=== PATIENT | female | born 1945 | race Caucasian/White ===

== ENCOUNTER 2017-12-20 10:19 | Emergency (ER) | payer MEDICARE ==
[2017-12-20 10:31] VITALS: BMI 25.0
[2017-12-20 11:24] LABS: BASO % 0.9 % (0.0-2.0); EOS # 0.2 K/uL (0.0-0.7); EOS % 4.9 % (0.0-4.0); HEMOGLOBIN 11.4 g/dL (12.0-16.0); LYMPH # 1.2 K/uL (1.0-4.3); LYMPH % 24.8 % (20.0-40.0); MEAN CELL VOLUME 86.7 fl (81.0-99.0); MEAN CORPUSCULAR HEMOGLOBIN 30.3 pg (27.0-31.0); MEAN PLATELET VOLUME 8.5 fl (7.2-11.7); MONO # 0.4 K/uL (0.0-0.8); MONO % 8.1 % (0.0-10.0); NEUT # 3.1 K/uL (1.8-7.0); NEUT % 61.3 % (50.0-75.0); RBC 3.76 Mil/uL (3.80-5.20); RED CELL DISTRIBUTION WIDTH 13.1 % (11.5-14.5)
--- NOTE | 2017-12-20 11:24 | ED PDOC ---
HPI: CCC, URI, Sore Throat Time Seen by Provider: 12/20/17 10:46 Chief Complaint (Nursing): ENT Problem Chief Complaint (Provider): Cough, phlegm History Per: Patient History/Exam Limitations: no limitations Have you had recent travel within the past 21 days to any of the following countries: [place], [place], [place] or [place]?: No Onset/Duration Of Symptoms: Days Associated Symptoms: Cough, Sputum. denies: Fever, Chills, Sore Throat, Vomiting, Diarrhea Additional Complaint(s): 72 yo female with HTN presents with cough x 5 days since being caught in the rain. Pt states she has some phlegm and some blood in sputum. Denies chest pain or SOB. Pt has been seeing Dr. Thompson for "bump in throat" and has appointment with ENT in 3 days. Past Medical History Reviewed: Historical Data, Nursing Documentation, Vital Signs Vital Signs: Last Vital Signs Temp 98.2 F 12/20/17 13:00 Pulse 81 12/20/17 13:00 Resp 17 12/20/17 13:00 BP 139/82 12/20/17 13:00 Pulse Ox 98 12/20/17 16:36 - Medical History PMH: Hypothyroidism - Surgical History Surgical History: No Surg Hx - Family History Family History: States: No Known Family Hx - Living Arrangements Living Arrangements: With Family - Social History Current smoker - smoking cessation education provided: No Alcohol: None Drugs: Denies - Immunization History Hx Tetanus Toxoid Vaccination: No Hx Influenza Vaccination: No Hx Pneumococcal Vaccination: No - Allergies Allergies/Adverse Reactions: Allergies Allergy/AdvReac Type Severity Reaction Status Date / Time Iodinated Contrast- Oral and Allergy SWELLING Verified 12/20/17 10:47 IV Dye Latex, Natural Rubber Allergy RASH Verified 12/20/17 10:47 Review of Systems ROS Statement: Except As Marked, All Systems Reviewed And Found Negative Constitutional: Negative for: Fever, Chills Cardiovascular: Negative for: Chest Pain Respiratory: Positive for: Cough, Hemoptysis, Sputum Physical Exam - Reviewed Nursing Documentation Reviewed: Yes Vital Signs Reviewed: Yes - Physical Exam Appears: Positive for: Well, Non-toxic, No Acute Distress Head Exam: Positive for: ATRAUMATIC, NORMAL INSPECTION, NORMOCEPHALIC Skin: Positive for: Normal Color, Warm, DRY Eye Exam: Positive for: Normal appearance ENT: Positive for: Normal ENT Inspection Neck: Positive for: Normal, Painless ROM Cardiovascular/Chest: Positive for: Regular Rate, Rhythm Respiratory: Positive for: Normal Breath Sounds. Negative for: Accessory Muscle Use, Respiratory Distress Back: Positive for: Normal Inspection Extremity: Positive for: Normal ROM Neurologic/Psych: Positive for: Alert, Oriented - Laboratory Results Result Diagrams: 12/20/17 11:16 12/20/17 11:16 - ECG O2 Sat by Pulse Oximetry: 98 Medical Decision Making Medical Decision Making: abnormal chest XR. CT ordered with basic labs. CHEST X RAY RESULTS IMPRESSION: Nodular opacity along right lateral chest wall. Recommend further evaluation with computed tomography. No acute infiltrate. CHEST CT RESULTS IMPRESSION: Innumerable pulmonary nodules. Largest mass is pleural-based along the lateral right middle lobe, no evidence of mediastinal or hilar lymphadenopathy although evaluation is limited by the absence of intravenous contrast. 10 mm polypoid mass along the right lateral wall of the lower cervical trachea. Consider further evaluation with bronchoscopy. Reports given to patient. Discussed mass in lungs and f/u with Dr. Thompson Disposition - Clinical Impression Clinical Impression: Cough, Lung mass - Patient ED Disposition Is Patient to be Admitted: No Counseled Patient/Family Regarding: Diagnosis, Need For Followup - Disposition Referrals: Duran Thompson MD [Family Provider] - Disposition: Routine/Home Disposition Time: 16:41 Condition: STABLE Instructions: Cough in Adults Forms: [facility] ([place]ian)
[2017-12-20 11:30] LABS: CALCIUM 9.3 mg/dL (8.4-10.2); GFR AFRICAN-AMERICAN > 60; GFR NON-AFRICAN AMERICAN > 60
[2017-12-20 11:40] LABS: ALBUMIN 4.2 g/dL (3.5-5.0); ALT/SGPT 29 U/L (9-52); AST/SGOT 37 U/L (14-36); BLOOD UREA NITROGEN 22 mg/dl (7-17)
--- NOTE | 2017-12-20 11:58 | RAD ---
HISTORY: cough, phlegm COMPARISON: 09/04/2012. TECHNIQUE: Chest PA and lateral FINDINGS: LUNGS: No infiltrate. Nodular density along the right lateral chest wall. This is not identifiable in the lateral projection. Further evaluation with computed tomography is advised. PLEURA: No significant pleural effusion identified. No pneumothorax apparent. CARDIOVASCULAR: Normal. OSSEOUS STRUCTURES: No significant abnormalities. VISUALIZED UPPER ABDOMEN: Normal. OTHER FINDINGS: None. IMPRESSION: Nodular opacity along right lateral chest wall. Recommend further evaluation with computed tomography. No acute infiltrate.
[2017-12-20] MEDS ORDERED: Iohexol 300 100 ML IJ ONE (14:16)
[2017-12-20] MEDS ORDERED: Sodium Chloride 0.9% 0 ML IV ONE (14:17)
--- NOTE | 2017-12-20 15:18 | CT ---
PROCEDURE: CT Chest without contrast HISTORY: nodule COMPARISON: None. TECHNIQUE: Contiguous axial images were obtained through the chest without intravenous contrast enhancement. Sagittal and coronal reconstructions were performed. Radiation dose (DLP): 324.25 mGy-cm. This CT exam was performed using one or more of the following dose reduction techniques: Automated exposure control, adjustment of the mA and/or kV according to patient size, and/or use of iterative reconstruction technique. FINDINGS: LUNGS: No pulmonary infiltrate. Innumerable pulmonary nodules bilaterally. 2.0 cm pleural-based nodule in the lateral right middle lobe. 1.5 cm pleural-based nodule posterior left lower lobe. Numerous parenchymal nodules, up to 11 mm. Consider further evaluation either with percutaneous biopsy of the largest right-sided pleural based nodule or with bronchoscopy were mediastinoscopy. MEDIASTINUM: Unremarkable thoracic aorta. No aneurysm. Normal sized heart. Main pulmonary artery unremarkable. No vascular congestion. No lymphadenopathy. PLEURA: No pleural fluid. No pneumothorax. BONES: No lytic or blastic osseous lesion. UPPER ABDOMEN: Grossly unremarkable. OTHER FINDINGS: Polypoid mass along the right lateral wall of the lower cervical trachea, 10 mm. Unchanged from examination of 11/11/2017. Consider evaluation with bronchoscopy. IMPRESSION: Innumerable pulmonary nodules. Largest mass is pleural-based along the lateral right middle lobe, no evidence of mediastinal or hilar lymphadenopathy although evaluation is limited by the absence of intravenous contrast. 10 mm polypoid mass along the right lateral wall of the lower cervical trachea. Consider further evaluation with bronchoscopy.
[2017-12-20 16:31] VITALS: O2SAT 98
[2017-12-20 17:00] VITALS: BP 159/79; PULSE 76; RESP 20; TEMP 98
== END 2017-12-20 16:55 | disposition home or self-care (01) ==
LOC: H.ER 10:19
DX: R05 Cough (principal); R91.8 Other nonspecific abnormal finding of lung field; E03.9 Hypothyroidism, unspecified